=== PATIENT | male | born 1960 | race Caucasian/White ===

== ENCOUNTER 2018-10-25 05:07 | Emergency (ER) | payer OTHER ==
[~2018-10-25 05:07] MED LIST: NO RTN MEDS
--- NOTE | 2018-10-25 05:12 | ER Report ---
History and Physical Time Seen By MD: 05:12 HPI/ROS CHIEF COMPLAINT: Right great toe pain HISTORY OF PRESENT ILLNESS: 58-year-old male presents with left great toe pain. Patient states he came down with a stomach flu 2 days ago. He states his toe started to hurt before the stomach flu. Is become much worse. Patient's unable to walk on his toe. He is planning on moving in 2 days. Allergies: Coded Allergies: No Known Allergies (Verified Allergy, Mild, 09/01/09) Home Meds Active Scripts Hydrocodone Bit/Acetaminophen (HYDROCODON-ACETAMINOPHEN 5-325) 1 Each Tablet, 1 EACH PO Q4-6H PRN for PAIN, #12 TAKE ONE TABLET BY MOUTH EVERY 4-6 HOURS NEEDED FOR PAIN Prov:YING VICTORIA DO 10/25/18 Prednisone (PREDNISONE) 20 Mg Tablet, 20 MG PO QDAY for reduce inflammation, #9 2 by mouth for 3 days then 1 by mouth for 3 days Prov:YING VICTORIA DO 10/25/18 Reported Medications [No Rtn Meds] No Conflict Check, 0 Refills 09/01/09 Reviewed Nurses Notes: Yes Old Medical Records Reviewed: Yes Constitutional Vital Sign - Last 24 Hours 10/25/18 10/25/18 05:12 05:41 Temp 97.7 Pulse 69 89 Resp 17 17 B/P (MAP) 154/83 123/95 (104) Pulse Ox 95 96 O2 Delivery Room Air Room Air Physical Exam General appearance: Mild distress Respiratory: Chest is non tender, lungs are clear to auscultation. Cardiac: Regular rate and rhythm Extremity: Examination of the right toe shows erythema and edema consistent with an acute gout attack. The toe is very sensitive to touch and tender to palpation. It is warm DIFFERENTIAL DIAGNOSIS: After history and physical exam differential diagnosis was considered for arthritis, gout, septic joint Medical Decision Making ED Course/Re-evaluation ED Course Patient was admitted to an examination room. H&P was done. The differential diagnoses was considered. Patient with classical syndrome of gout. He has a v parish swollen right great MCP consistent with a gout flare. It's warm to the touch and extremely tender to palpation. Patient be treated empirically for gout. He is advised to continue ibuprofen 600 mg 3 times daily with food. He'll be given a brief prednisone burst 60 mg here in the emergency department, then 40 for 3 days and 20 for 3 days. He is given Lortab for pain relief. Patient's planning on moving in 2 days. He would like to feel better. Hopefully, this gets him there. Decision to Disposition Date: Oct 25, 2018 Decision to Disposition Time: 05:25 Depart Departure Latest Vital Signs Vital Signs Date Time Temp Pulse Resp B/P (MAP) Pulse Ox O2 Delivery O2 Flow Rate FiO2 10/25/18 05:41 89 17 123/95 (104) 96 Room Air 10/25/18 05:12 97.7 Impression: Primary Impression: Gout attack Condition: Improved Disposition: HOME OR SELF-CARE New Scripts Hydrocodone Bit/Acetaminophen (HYDROCODON-ACETAMINOPHEN 5-325) 1 Each Tablet 1 EACH PO Q4-6H PRN for PAIN, #12 TAKE ONE TABLET BY MOUTH EVERY 4-6 HOURS NEEDED FOR PAIN Prov: YING VICTORIA DO 10/25/18 Prednisone (PREDNISONE) 20 Mg Tablet 20 MG PO QDAY for reduce inflammation, #9 2 by mouth for 3 days then 1 by mouth for 3 days Prov: YING VICTORIA DO 10/25/18 Patient Instructions: Gout (ED) Additional Instructions: Take ibuprofen 200 mg 3-4 tablets 3 times a day with food Take all medication with food Apply heating pad to your toe or perform hot soaks Problem Qualifiers Primary Impression: Gout attack Gout site: toe Gout etiology: unspecified cause Laterality: right Qualified Codes: M10.9 - Gout, unspecified YING VICTORIA DO Oct 25, 2018 05:12
[2018-10-25] MEDS ORDERED: ACET/HYDROC 5/325MG TH ER ONLY 2 TAB/BOTTLE PO ONE (05:25)
[2018-10-25] MEDS ORDERED: predniSONE 20 MG TAB PO ONE (05:25)
[2018-10-25] MEDS ORDERED: PRED20TA6 PO (05:28)
[2018-10-25] MEDS ORDERED: LOR5/325 PO (05:28)
[2018-10-25 05:41] VITALS: BP 123/95
== END 2018-10-25 05:41 | disposition home or self-care (01) ==
LOC: ER 05:21
DX: M10.9 Gout, unspecified (principal)
CPT/HCPCS: 99283; J7512